=== PATIENT | male | born 1975 | race Caucasian/White ===

== ENCOUNTER 2018-08-08 15:14 | Outpatient (CLI) | payer BC, SELFPAY ==
[2018-08-08 16:00] LABS: Abs Immature Grans 0.01 k/cumm (0.0-0.09); Absolute Basophil Count 0.03 k/cumm (0.0-0.2); Absolute Eosinophil Count 0.26 k/cumm (0.0-0.7); Absolute Lymphocyte Count 1.07 k/cumm (1.2-3.4); Absolute Monocyte Count 0.41 k/cumm (0.11-0.7); Absolute Neutrophil Count 3.68 k/cumm (1.2-6.7); Basophils % 0.5; Eosinophils % 4.8; HCT 41.2 % (40.0-50.0); HGB 14.8 g/dL (13.5-17.5); Immature Grans % 0.2; Lymphocytes % 19.6; Mean Corp. HGB Concentration 35.9 g/dL (32.0-36.0); Mean Corpuscular Hemoglobin 31.3 pg (27.0-33.0); Mean Corpuscular Volume 87.1 fL (80-95); Mean Platelet Volume 9.6 fL (8.0-11.0); Monocytes % 7.5; Neutrophils % 67.4; Platelet Count 221 x1000/uL (130-400); RBC 4.73 m/cumm (4.50-6.00); White Blood Cell Count 5.46 k/cumm (4.4-10.8)
[2018-08-08 16:39] LABS: ALT 90 U/L (12-78); AST 27 U/L (15-37); Albumin 4.2 g/dL (3.4-5.0); Alkaline Phosphatase 82 U/L (46-116); Anion Gap 10.5 mmol/L (3-11); BUN 12 mg/dL (7-18); Bilirubin, Total 1.1 mg/dL (0.2-1.0); CO2 25.5 mmol/L (21.0-32.0); CREATININE 1.15 mg/dL (0.70-1.30); Chloride 102 mmol/L (98-107); Glucose 72 mg/dL (70-100); Potassium 4.2 mmol/L (3.5-5.1); Sodium 138 mmol/L (136-145); TSH 1.82 uIU/mL (0.358-3.74); Total Protein 7.6 g/dL (6.4-8.2)
[2018-08-08 16:57] LABS: FREE T4 0.78 ng/dL (0.76-1.46); LDH 159 U/L (85-227)
== END 2018-08-08 15:34 ==
PROVIDERS: PCP Internal Medicine; Visit Provider Internal Medicine Hospice and Palliative Medicine
DX: R74.8 Abnormal levels of other serum enzymes (principal); Z79.899 Other long term (current) drug therapy; C77.9 Secondary and unspecified malignant neoplasm of lymph node, unspecified; C43.4 Malignant melanoma of scalp and neck; C78.01 Secondary malignant neoplasm of right lung; C78.02 Secondary malignant neoplasm of left lung
CPT/HCPCS: 36415; 80053; 83615; 84439; 84443; 85025

== ENCOUNTER 2018-10-16 13:30 | Outpatient (CLI) | payer BC, SELFPAY ==
[2018-10-16 13:56] LABS: Abs Immature Grans 0.02 k/cumm (0.0-0.09); Absolute Basophil Count 0.05 k/cumm (0.0-0.2); Absolute Eosinophil Count 0.29 k/cumm (0.0-0.7); Absolute Lymphocyte Count 0.96 k/cumm (1.2-3.4); Absolute Monocyte Count 0.32 k/cumm (0.11-0.7); Absolute Neutrophil Count 2.97 k/cumm (1.2-6.7); Basophils % 1.1; Eosinophils % 6.3; HCT 41.7 % (40.0-50.0); HGB 14.9 g/dL (13.5-17.5); Immature Grans % 0.4; Lymphocytes % 20.8; Mean Corp. HGB Concentration 35.7 g/dL (32.0-36.0); Mean Corpuscular Hemoglobin 30.7 pg (27.0-33.0); Mean Corpuscular Volume 85.8 fL (80-95); Mean Platelet Volume 9.8 fL (8.0-11.0); Monocytes % 6.9; Neutrophils % 64.5; Platelet Count 216 x1000/uL (130-400); RBC 4.86 m/cumm (4.50-6.00); RBC Distribution Width 12.7 % (11.8-14.1); White Blood Cell Count 4.61 k/cumm (4.4-10.8)
[2018-10-16 14:18] LABS: ALT 51 U/L (12-78); AST 18 U/L (15-37); Albumin 4.2 g/dL (3.4-5.0); Alkaline Phosphatase 73 U/L (46-116); Anion Gap 10.3 mmol/L (3-11); BUN 13 mg/dL (7-18); CO2 24.7 mmol/L (21.0-32.0); CREATININE 1.23 mg/dL (0.70-1.30); Calcium 9.4 mg/dL (8.5-10.1); Chloride 102 mmol/L (98-107); FREE T4 0.67 ng/dL (0.76-1.46); Glucose 118 mg/dL (70-100); LDH 171 U/L (85-227); Potassium 4.1 mmol/L (3.5-5.1); Sodium 137 mmol/L (136-145); Total Protein 7.7 g/dL (6.4-8.2)
== END 2018-10-16 13:50 ==
PROVIDERS: PCP Internal Medicine; Visit Provider Internal Medicine Hospice and Palliative Medicine
DX: C43.4 Malignant melanoma of scalp and neck (principal); C77.9 Secondary and unspecified malignant neoplasm of lymph node, unspecified; C78.01 Secondary malignant neoplasm of right lung; C78.02 Secondary malignant neoplasm of left lung; Z79.899 Other long term (current) drug therapy
CPT/HCPCS: 36415; 80053; 83615; 84439; 84443; 85025

== ENCOUNTER 2019-02-12 09:24 | Outpatient (CLI) | payer BC, SELFPAY ==
[2019-02-12 09:57] LABS: Abs Immature Grans 0.01 k/cumm (0.0-0.09); Absolute Basophil Count 0.04 k/cumm (0.0-0.2); Absolute Eosinophil Count 0.46 k/cumm (0.0-0.7); Absolute Lymphocyte Count 0.78 k/cumm (1.2-3.4); Absolute Monocyte Count 0.28 k/cumm (0.11-0.7); Absolute Neutrophil Count 2.53 k/cumm (1.2-6.7); Eosinophils % 11.2; HCT 40.8 % (40.0-50.0); HGB 14.5 g/dL (13.5-17.5); Immature Grans % 0.2; Mean Corp. HGB Concentration 35.5 g/dL (32.0-36.0); Mean Corpuscular Hemoglobin 31.1 pg (27.0-33.0); Mean Corpuscular Volume 87.6 fL (80-95); Mean Platelet Volume 9.1 fL (8.0-11.0); Monocytes % 6.8; Neutrophils % 61.8; Platelet Count 221 x1000/uL (130-400); RBC 4.66 m/cumm (4.50-6.00); RBC Distribution Width 12.5 % (11.8-14.1)
[2019-02-12 10:19] LABS: ALT 51 U/L (16-63); AST 25 U/L (15-37); Albumin 4.2 g/dL (3.4-5.0); Alkaline Phosphatase 69 U/L (46-116); Anion Gap 8.4 mmol/L (3-11); BUN 10 mg/dL (7-18); Bilirubin, Total 1.7 mg/dL (0.2-1.0); CO2 25.6 mmol/L (21.0-32.0); Calcium 8.9 mg/dL (8.5-10.1); Chloride 106 mmol/L (98-107); FREE T4 0.83 ng/dL (0.76-1.46); Glucose 77 mg/dL (74-106); LDH 173 U/L (85-227); Sodium 140 mmol/L (136-145); TSH 0.65 uIU/mL (0.36-3.74); Total Protein 7.5 g/dL (6.4-8.2)
== END 2019-02-12 09:44 ==
PROVIDERS: PCP Internal Medicine; Visit Provider Internal Medicine Hospice and Palliative Medicine
DX: C78.01 Secondary malignant neoplasm of right lung (principal); C78.02 Secondary malignant neoplasm of left lung
CPT/HCPCS: 36415; 80053; 83615; 84439; 84443; 85025